=== PATIENT | female | born 2000 ===

== ENCOUNTER 2020-01-06 14:18 | Inpatient (IN) | payer MEDICAID ==
[~2020-01-06] VITALS: Ht 175.3 cm; Wt 154.2 kg
[2020-01-06 14:29] VITALS: BP 147/96
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
[2020-01-06] MEDS ORDERED: HYDROcodone/Acetamin 5/325 tab ORAL ONE (14:45)
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
[2020-01-06] MEDS ORDERED: Lidocaine 2% 20mg/ml/Epi 0.005mg/ml 20ml vial INJ ONE (15:00)
--- NOTE | 2020-01-06 15:17 | Diagnostic Imaging Report ---
EXAM: XR Left Fingers, 2 or More Views CLINICAL HISTORY: PAIN TECHNIQUE: Frontal, lateral and oblique views of the fingers of the left hand. COMPARISON: No relevant prior studies available. FINDINGS: Bones/joints: Unremarkable. No acute fracture. No dislocation. Soft tissues: Soft tissue swelling. Query laceration on the palmar surface of the thumb. No radiopaque foreign body. IMPRESSION: Soft tissue swelling. Query laceration on the palmar surface of the thumb. No acute fracture or malalignment.
[2020-01-06] MEDS ORDERED: Bacitracin Oint UD TOPIC ONE ×4 (15:38→23:15)
[2020-01-06 17:09] LABS: BASOPHILS % (AUTO) 0.6 % (0.0-2.0); EOSINOPHILS % (AUTO) 0.8 % (0.0-3.0); HEMATOCRIT 42.8 % (37.0-47.0); HEMOGLOBIN 12.8 G/DL (12.0-16.0); LYMPHOCYTES % (AUTO) 13.9 % (20.0-45.0); MEAN CORPUSCULAR VOLUME 85 FL (80-99); MONOCYTES % (AUTO) 3.6 % (1.0-10.0); NEUTROPHILS % (AUTO) 81.1 % (45.0-75.0); PLATELET COUNT 336 K/UL (150-450); RED BLOOD COUNT 5.04 M/UL (4.20-5.40); RED CELL DISTRIBUTION WIDTH 15.5 % (11.6-14.8); WHITE BLOOD COUNT 17.6 K/UL (4.8-10.8)
--- NOTE | 2020-01-06 17:12 | NUR ---
ED Nurse Note:blood and urine sent to labs, given IV fluids
[2020-01-06 17:19] LABS: ANION GAP 10 mmol/L (5-15); BLOOD UREA NITROGEN 12 mg/dL (7-18); CALCIUM 9.3 MG/DL (8.5-10.1); CARBON DIOXIDE 25 MMOL/L (21-32); CHLORIDE 105 MMOL/L (98-107); CREATININE 0.9 MG/DL (0.55-1.30); POTASSIUM 4.3 MMOL/L (3.5-5.1); SODIUM 140 MMOL/L (136-145)
[2020-01-06 17:24] LABS: ALANINE AMINOTRANSFERASE 21 U/L (12-78); ALBUMIN 3.9 G/DL (3.4-5.0); ALKALINE PHOSPHATASE 75 U/L (46-116); ASPARTATE AMINO TRANSFERASE 16 U/L (15-37); BILIRUBIN,TOTAL 0.6 MG/DL (0.2-1.0)
--- NOTE | 2020-01-06 18:46 | NUR ---
ED Nurse Note:report after 1929
--- NOTE | 2020-01-06 19:10 | NUR ---
ED Nurse Note: Pt resting in bed, VSS no ss of distress noted. Will continue to monitor.
[2020-01-06 19:27] VITALS: BP 137/87
[2020-01-06 19:30] VITALS: BP 142/82
--- NOTE | 2020-01-06 19:30 | NUR ---
NURSE NOTES: Patient arrived at [facility] unit stable and in no signs of distress. Belongings sent with patient, verified and checked against inventory checklist. Patient has left thumb injury, and right arm injury covered with gauze and immobilizer. Patient is alert and oriented x 4. Reports a pain of 7/10 in the thumb but is "tolerable." Patient oriented around room, call light within reach, side rails up x 2.
--- NOTE | 2020-01-06 19:40 | NUR ---
ED Nurse Note: report given to HESHAM Gamble on [facility] unit.
--- NOTE | 2020-01-06 19:45 | NUR ---
ER DISCHARGE NOTE: Patient is cleared to be discharged to [facility] unit per ERMD, pt is aox4, 99% on room air, with stable vital signs. pt was given dc nstructions, pt was able to verbalize understanding. pt is able to ambulate with steady gait. pt took all belongings. Reprt given to HESHAM Gamble on [facility] unit. Pt transferred to unit with 1 RN.
[2020-01-06] MEDS ORDERED: D5W IV ONE (22:00)
[2020-01-06] MEDS ORDERED: HYDROcodone/Acetamin 5/325 tab ORAL PRN (22:00)
[2020-01-06] MEDS ORDERED: Polysporin Oint 15gm TOPIC PRN (22:00)
[2020-01-06] MEDS ORDERED: CEFAZOLIN SOD IV ONE (22:00)
[2020-01-06] MEDS ORDERED: ceFAZolin 1gm in D5W 55ml IVPB ONE (22:30)
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
[2020-01-07] VITALS (12 sets, daily range): BP systolic 131–175; BP diastolic 69–104
[2020-01-07] MEDS: HYDROcodone/Acetamin 10/325 tab ORAL PRN ×2 (00:07→20:49)
[2020-01-07] MEDS: Doxycycline Monohydrate 100mg ORAL SCH ×3 (03:11→20:49)
[2020-01-07 05:04] LABS: BASOPHILS % (AUTO) 0.5 % (0.0-2.0); EOSINOPHILS % (AUTO) 1.2 % (0.0-3.0); HEMATOCRIT 37.1 % (37.0-47.0); HEMOGLOBIN 11.2 G/DL (12.0-16.0); LYMPHOCYTES % (AUTO) 25.6 % (20.0-45.0); MEAN CORPUSCULAR VOLUME 85 FL (80-99); MONOCYTES % (AUTO) 4.1 % (1.0-10.0); NEUTROPHILS % (AUTO) 68.6 % (45.0-75.0); PLATELET COUNT 275 K/UL (150-450); RED BLOOD COUNT 4.37 M/UL (4.20-5.40); RED CELL DISTRIBUTION WIDTH 15.4 % (11.6-14.8); WHITE BLOOD COUNT 11.6 K/UL (4.8-10.8)
[2020-01-07 05:26] LABS: ALANINE AMINOTRANSFERASE 16 U/L (12-78); ALBUMIN 3.4 G/DL (3.4-5.0); ALKALINE PHOSPHATASE 64 U/L (46-116); ANION GAP 10 mmol/L (5-15); ASPARTATE AMINO TRANSFERASE 15 U/L (15-37); BILIRUBIN,TOTAL 0.6 MG/DL (0.2-1.0); BLOOD UREA NITROGEN 11 mg/dL (7-18); CALCIUM 8.7 MG/DL (8.5-10.1); CARBON DIOXIDE 25 MMOL/L (21-32); CHLORIDE 106 MMOL/L (98-107); CREATININE 0.9 MG/DL (0.55-1.30); POTASSIUM 3.8 MMOL/L (3.5-5.1); SODIUM 141 MMOL/L (136-145)
--- NOTE | 2020-01-07 07:26 | NUR ---
HAND-OFF: Report given to HESHAM Gomez. Patient in stable condition.
--- NOTE | 2020-01-07 07:30 | NUR ---
NURSE NOTES: Handoff received from Jimmie DAHL. Patient is asleep, no signs of distress noted. Left AC IV is intact and patent, running IVF as ordered. Patient is currently NPO, plan is to have surgery at 0900. Dressings are dry and intact. Bed is low and locked, side rails up x2, call light within reach.
[2020-01-07] MEDS ORDERED: ceFAZolin 1gm in D5W 55ml IVPB ONE (08:00)
[2020-01-07] MEDS ORDERED: Lidocaine 1% 10mg/ml/Epi 0.005mg/ml 30ml vial INJ ONE (08:32)
[2020-01-07] MEDS ORDERED: Bupivacaine w/Epi 0.5% 30ml Vial INJ ONE (08:33)
[2020-01-07] MEDS ORDERED: Bupivacaine 0.5% Inj 30 ml vial INJ ONE (08:33)
[2020-01-07] MEDS ORDERED: Bacitracin 50000 Units Vial ONE (08:33)
[2020-01-07] MEDS ORDERED: Lidocaine 1% Plain 30 ml INJ ONE (08:33)
[2020-01-07] MEDS ORDERED: LR 1000ml 1,000 ML IVLG SCH (08:34)
[2020-01-07] MEDS ORDERED: LORazepam Inj 2mg/ml 1ml IV PRN (08:45)
[2020-01-07] MEDS ORDERED: Atropine Sulfate 0.4mg/ml inj IVP PRN (08:45)
[2020-01-07] MEDS ORDERED: Labetalol 5mg/ml 20ml vial IV PRN (08:45)
[2020-01-07] MEDS ORDERED: Hydromorphone 0.5mg/0.5ml inj IVP PRN (08:45)
[2020-01-07] MEDS ORDERED: HYDROcodone/Acetamin 7.5/325 tab ORAL PRN (08:45)
[2020-01-07] MEDS ORDERED: DiphenhydrAMINE 50mg/ml Inj IVP PRN (08:45)
[2020-01-07] MEDS ORDERED: HYDROcodone/Acetamin 5/325 tab ORAL PRN (08:45)
[2020-01-07] MEDS ORDERED: Metoclopramide 10mg/2ml Inj IVP PRN (08:45)
[2020-01-07] MEDS ORDERED: fentaNYL 100 mcg/2 mL IV PRN (08:45)
[2020-01-07] MEDS ORDERED: oxyCODONE HCL/Acetaminophen 5/325mg ORAL PRN (08:45)
[2020-01-07] MEDS ORDERED: Ketorolac 30mg Inj IV PRN ×2 (08:45)
[2020-01-07] MEDS ORDERED: Midazolam 2mg/2ml Inj IVP PRN (08:45)
[2020-01-07] MEDS ORDERED: Meperidine 25mg/0.5ml Inj (FOR RIGORS ONLY) IV PRN (08:45)
[2020-01-07] MEDS ORDERED: Sodium Chloride 10ml vial INJ ONE (08:50)
[2020-01-07] MEDS ORDERED: Lidocaine 1% MPF 10mg/ml 5ml ONE (08:50)
[2020-01-07] MEDS ORDERED: LR 1000ml ONE (09:00)
[2020-01-07] MEDS ORDERED: NS Irrig 1000ml ONE (09:00)
[2020-01-07] MEDS ORDERED: Sterile Water Irrig 1000ml IRRIG ONE (09:00)
--- NOTE | 2020-01-07 09:22 | NUR ---
NURSE NOTES: Patient left for surgery in stable condition.
--- NOTE | 2020-01-07 09:34 | Pre-Procedure Note/Attestation ---
Pre-Procedure Note/Attestation Complete Prior to Procedure Planned Procedure: left Procedure Narrative: Left thumb wound exploration, repair of flexor tendons, and laceration repair Indications for Procedure Pre-Operative Diagnosis: Left thumb laceration with flexor tendon disruption Attestation I attest that I discussed the nature of the procedure; its benefits; risks and complications; and alternatives (and the risks and benefits of such alternatives ), prior to the procedure, with the patient (or the patient's legal sales representative trainee). I attest that, if there was a reasonable possibility of needing a blood transfusion, the patient (or the patient's legal sales representative trainee) was given the [facility] standardized written summary, pursuant to the Mayito Cecilia Blood Safety Act ([place] Health and Safety Code # 1645, as amended). I attest that I re-evaluated the patient just prior to the surgery and that there has been no change in the patient's H&P, except as documented below: Azael Sandy MD Jan 07, 2020 09:34
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
[2020-01-07] MEDS ORDERED: fentaNYL 100 mcg/2 mL IV ONE (09:59)
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
[2020-01-07] MEDS ORDERED: Neosporin Oint Ud Pkt TOPIC ONE (10:46)
--- NOTE | 2020-01-07 11:05 | Anethesia Preoperative Eval ---
Anesthesia Pre-op PMH/ROS General Date of Evaluation: Jan 07, 2020 Anesthesiologist: Dom ASA Score: ASA 3 Mallampati Score Class I : Soft palate, uvula, fauces, pillars visible Class II: Soft palate, uvula, fauces visible Class III: Soft palate, base of uvula visible Class IV: Only hard plate visible Mallampati Classification: Class III Surgeon: Du Diagnosis: L Thumb Pain Surgical Procedure: Repair L Thump Tendon Anesthesia History: none Family History: no anesthesia problems Allergies: Coded Allergies: No Known Allergies (Unverified , 01/06/20) Medications: see eMAR Patient NPO?: Yes Past Medical History Cardiovascular: Reports: HTN Other: obesity - Morbid BMI 54 Anesthesia Pre-op Phys. Exam Physician Exam Last Vital Signs Date Time Temp Pulse Resp B/P (MAP) Pulse Ox O2 Delivery O2 Flow Rate FiO2 01/07/20 08:00 98.4 75 20 157/104 (121) 99 01/06/20 23:02 Room Air Constitutional: NAD Neurologic: CN 2-12 intact Cardiovascular: RRR Respiratory: CTA Gastrointestinal: S/NT/ND Airway Exam Mallampati Score: Class III MO: limited ROM: limited Teeth: intact Anesthesia Pre-op A/P Labs Hematology Test 01/06/20 16:55 01/07/20 04:30 White Blood Count 17.6 K/UL (4.8-10.8) H 11.6 K/UL (4.8-10.8) H Red Blood Count 5.04 M/UL (4.20-5.40) 4.37 M/UL (4.20-5.40) Hemoglobin 12.8 G/DL (12.0-16.0) 11.2 G/DL (12.0-16.0) L Hematocrit 42.8 % (37.0-47.0) 37.1 % (37.0-47.0) Mean Corpuscular Volume 85 FL (80-99) 85 FL (80-99) Mean Corpuscular Hemoglobin 25.3 PG (27.0-31.0) L 25.7 PG (27.0-31.0) L Mean Corpuscular Hemoglobin Concent 29.8 G/DL (32.0-36.0) L 30.2 G/DL (32.0-36.0) L Red Cell Distribution Width 15.5 % (11.6-14.8) H 15.4 % (11.6-14.8) H Platelet Count 336 K/UL (150-450) 275 K/UL (150-450) Mean Platelet Volume 8.8 FL (6.5-10.1) 8.1 FL (6.5-10.1) Neutrophils (%) (Auto) 81.1 % (45.0-75.0) H 68.6 % (45.0-75.0) Lymphocytes (%) (Auto) 13.9 % (20.0-45.0) L 25.6 % (20.0-45.0) Monocytes (%) (Auto) 3.6 % (1.0-10.0) 4.1 % (1.0-10.0) Eosinophils (%) (Auto) 0.8 % (0.0-3.0) 1.2 % (0.0-3.0) Basophils (%) (Auto) 0.6 % (0.0-2.0) 0.5 % (0.0-2.0) Coagulation Test 01/07/20 04:30 Prothrombin Time 10.7 SEC (9.30-11.50) Prothromb Time International Ratio 1.0 (0.9-1.1) Activated Partial Thromboplast Time 26 SEC (23-33) Chemistry Test 01/06/20 16:55 01/07/20 04:30 Sodium Level 140 MMOL/L (136-145) 141 MMOL/L (136-145) Potassium Level 4.3 MMOL/L (3.5-5.1) 3.8 MMOL/L (3.5-5.1) Chloride Level 105 MMOL/L (98-107) 106 MMOL/L (98-107) Carbon Dioxide Level 25 MMOL/L (21-32) 25 MMOL/L (21-32) Anion Gap 10 mmol/L (5-15) 10 mmol/L (5-15) Blood Urea Nitrogen 12 mg/dL (7-18) 11 mg/dL (7-18) Creatinine 0.9 MG/DL (0.55-1.30) 0.9 MG/DL (0.55-1.30) Estimat Glomerular Filtration Rate > 60 mL/min (>60) > 60 mL/min (>60) Glucose Level 106 MG/DL (74-106) 62 MG/DL (74-106) L Calcium Level 9.3 MG/DL (8.5-10.1) 8.7 MG/DL (8.5-10.1) Total Bilirubin 0.6 MG/DL (0.2-1.0) 0.6 MG/DL (0.2-1.0) Aspartate Amino Transf (AST/SGOT) 16 U/L (15-37) 15 U/L (15-37) Alanine Aminotransferase (ALT/SGPT) 21 U/L (12-78) 16 U/L (12-78) Alkaline Phosphatase 75 U/L (46-116) 64 U/L (46-116) Total Protein 7.9 G/DL (6.4-8.2) 6.9 G/DL (6.4-8.2) Albumin 3.9 G/DL (3.4-5.0) 3.4 G/DL (3.4-5.0) Globulin 4.0 g/dL 3.5 g/dL Albumin/Globulin Ratio 1.0 (1.0-2.7) 1.0 (1.0-2.7) Urine Test Test 01/06/20 16:55 Urine HCG, Qualitative Negative (NEGATIVE) Risk Assessment & Plan Assessment: ASA 3 Plan: GA. SED Status Change Before Surgery: No Pre-Antibiotics Dru Grams Ancef IV Given Within 1 Hr of Incision: Yes Time Given: 09:51 Berny Fernandes MD Jan 07, 2020 11:05
--- NOTE | 2020-01-07 11:08 | Immediate Post-Op Evaluation ---
Immediate Post-Op Evalulation Immediate Post-Op Evalulation Procedure: L Thumb Tendon Repair Date of Evaluation: Jan 07, 2020 Time of Evaluation: 11:22 IV Fluids: 400 LR Blood Products: 0 Estimated Blood Loss: 4 Urinary Output: 0 Blood Pressure Systolic: 176 Blood Pressure Diastolic: 84 Pulse Rate: 89 Respiratory Rate: 16 O2 Sat by Pulse Oximetry: 100 Temperature (Fahrenheit): 97 Pain Score (1-10): 1 Nausea: No Vomiting: No Complications 0 Patient Status: awake, reacts, patent, none Hydration Status: adequate Dru Grams ancefr IV Given Within 1 Hr of Incision: Yes Time Given: 09:51 Berny Fernandes MD Jan 07, 2020 11:08
--- NOTE | 2020-01-07 11:16 | Brief Operative Note ---
Immediate Post Operative Note Operative Note Chief Complaint: Unable to flex left thumb Pre-op Diagnosis: Left thumb laceration with flexor tendon disruption Procedure: Left thumb wound exploration, debridement, repair of flexor pollics longus, and laceration repair Post-op Diagnosis: Same Post-op Diagnosis: same as pre-op Findings: other - Complete transection of the flexor pollicis longus at insertion point on the distal phalanx Surgeon: Azael Sandy Hemstitching Machine Operator: None Anesthesiologist: Dom Anesthesia: general Specimen: none Complications: none Condition: stable Fluids: See anesthesia record Estimated Blood Loss: minimal Drains: none Implant(s) used?: No Azael Sandy MD Jan 07, 2020 11:16
--- NOTE | 2020-01-07 11:45 | NUR ---
NURSE NOTES: Patient returned from surgery in stable condition. Addendum: 01/07/20 at 2021 by Jason Ramírez RN RN Nicky harper, [phone]
[2020-01-07] MEDS ORDERED: Bacitracin Oint UD TOPIC SCH (12:00)
--- NOTE | 2020-01-07 12:30 | Operative Note - Dictated ---
DATE OF OPERATION: 01/07/2020 PREOPERATIVE DIAGNOSIS: Left thumb laceration with disruption of flexor tendon. POSTOPERATIVE DIAGNOSIS: Left thumb laceration with disruption of flexor pollicis longus. PROCEDURE: Left thumb wound exploration, wound debridement, repair of flexor pollicis longus, repair of A2 estrellita. SURGEON: Azael Sandy MD. ELECTRONICS DEPARTMENT MANAGER: None. ANESTHESIOLOGIST: Dr. Berny Fernandes. ANESTHESIA: General anesthesia. COMPLICATIONS: None. FINDINGS DURING THIS PROCEDURE: Complicated jagged S shaped laceration of the left thumb base directly over the IP joint and with complete transection of the flexor pollicis longus at the insertion point to the distal phalanx. The A2 estrellita was also disrupted and the flexor pollicis longus was retracted toward the base of the thumb that had to be . OPERATIVE PROCEDURE NOTE IN DETAIL: The patient was brought into operating room, prepped and draped in the usual sterile fashion after general anesthesia was induced. A nonsterile tourniquet was placed on the left forearm prior to prepping and draping the left upper extremity. The left hand was exsanguinated using an Esmarch bandage. Tourniquet was inflated to 250 mmHg. The wound was explored and the laceration extended diagonally from the lower most proximal point of the laceration toward the base of the thumb. Skin flaps were raised to expose the tendon sheath. The tendon sheath was transected and the flexor pollicis longus was found to be disrupted at the insertion to the distal phalanx. Proximal end of the tendon was retracted and could not be seen. A2 estrellita was also disrupted within this wound. A2/A3 pulleys were freshened up and opened up. The flexor pollicis longus was milked back out and then pulled out to length with a hemostat. A Mitek anchor screw was then inserted into the base of the distal phalanx where the the flexor pollicis longus usually resides. A Mitek anchor screw was then used to suture the flexor pollicis longus back into its normal anatomical position. Once this was completed, the A2 and A3 pulleys were repaired using 4-0 Vicryl interrupted sutures. repaired, the wound was irrigated using normal saline. Wound was then closed using 3-0 nylon interrupted and running continuous sutures. The patient can be discharged home today and will follow up with me in my office for postop care. Azael Sandy M.D. DR: YANCI JOB#: [id number] CC:
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
--- NOTE | 2020-01-07 16:00 | NUR ---
NURSE NOTES: Called Yasmin Cowart MATERIAL ASSISTANT regarding discharge per Supa Whitehead advised to call Dr. Rosado. Waiting for call back.
--- NOTE | 2020-01-07 17:55 | NUR ---
NURSE NOTES: Doctor Alonzo advised RN to contact Dr. Sprague regarding discharge, waiting for call back.
--- NOTE | 2020-01-07 19:30 | NUR ---
HAND-OFF: Report given to Cheri DAHL.
--- NOTE | 2020-01-07 19:49 | NUR ---
NURSE NOTES: Received report from HESHAM Gomez. Pt is awake, lying semi-vences's; comfortably resting. No signs of acute distress noted. Pt denies any pain at this time. AOx4; able to make needs known. Checked IV site; patent and flushed. No erythema, bleeding, or infiltration noted. Left thumb dressing dry and intact. Right arm covered with Kurlex noted. Bed at lowest position. Brakes on. Siderails up x3. Call light within reach. Will continue to monitor.
[2020-01-08] VITALS: BP 146/85
[2020-01-08 04:00] VITALS: BP 146/108
--- NOTE | 2020-01-08 07:12 | NUR ---
HAND-OFF: Report given to HESHAM Gomez. Pt is awake and in stable condition. Plan of care endorsed.
--- NOTE | 2020-01-08 07:15 | NUR ---
NURSE NOTES: Handoff received from Cheri DAHL. Patient is awake and alert, no signs of distress noted. Left AC IV is intact and asymptomatic running IVF as ordered. No complaints of pain, dressings are dry and intact. Patient was updated about discharge plan today and she verbalized agreement. Bed is low and locked, side rails up x2, call light within reach.
[2020-01-08 08:00] VITALS: BP 138/75
[2020-01-08] MEDS: Doxycycline Monohydrate 100mg ORAL SCH (08:42)
[2020-01-08 09:59] VITALS: BP 138/75
--- NOTE | 2020-01-08 09:59 | 48 Hour Post Anesthesia Eval ---
Post Anesthesia Evaluation Procedure: L Thumb Tendon Repair Date of Evaluation: Jan 08, 2020 Time of Evaluation: 09:58 Blood Pressure Systolic: 138 0: 75 Pulse Rate: 82 Respiratory Rate: 18 Temperature (Fahrenheit): 98.2 O2 Sat by Pulse Oximetry: 99 Airway: patent Nausea: No Vomiting: No Pain Intensity: 2 Hydration Status: adequate Cardiopulmonary Status: Stable Mental Status/LOC: patient returned to baseline Follow-up Care/Observations: 0 Post-Anesthesia Complications: 0 Follow-up care needed: N/A Berny Fernandes MD Jan 08, 2020 09:59
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
[2020-01-08] MEDS ORDERED: DOXYCYCLINE MO100 M2 PO (13:11)
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
== END 2020-01-08 14:58 | disposition home or self-care (01) | DRG 316 ==
LOC: EDBD 14:18 → EMR 15:54 → 3E 17:05 → EDBEDREQ 17:41 → 3E 18:23
PROC: 0LQ80ZZ Repair Left Hand Tendon, Open Approach (ICD-10-PCS; principal; 2020-01-07 09:00)
DX: S66.022A Laceration of long flexor muscle, fascia and tendon of left thumb at wrist and hand level, initial encounter (principal); S51.811A Laceration without foreign body of right forearm, initial encounter; S61.012A Laceration without foreign body of left thumb without damage to nail, initial encounter; D64.9 Anemia, unspecified; X99.1XXA Assault by knife, initial encounter; E66.01 Morbid (severe) obesity due to excess calories; Z68.43 Body mass index [BMI] 50.0-59.9, adult
CPT/HCPCS: 36415; 80053; 81025; 85025; 85610; 85730; 87040; 94003; 94150; 96360; 96361; 99285; J2405; J7030; U0002